=== PATIENT | female | born 1970 | race Caucasian/White ===

== ENCOUNTER 2020-11-27 08:05 | Emergency (ER) | payer BC, SELFPAY ==
[2020-11-27] VITALS (25 sets, daily range): BP systolic 121–151; BP diastolic 69–108; PULSE 68–92; RESP 14–20; TEMP 36.9; O2SAT 97–100
--- NOTE | ~2020-11-27 | CT_ITS ---
EXAMINATION: CT abdomen pelvis w con DATE: 11/27/2020 08:59 INDICATION: Upper abdominal pain. TECHNIQUE: Computed tomography (CT) of the abdomen and pelvis was performed with 100 mL Omnipaque 350 intravenous contrast. Automated exposure control and iterative reconstruction technique were employe d. The dose-length product was 1348.75 mGy-cm. COMPARISON: None. FINDINGS: The visualized portions of the lung bases demonstrate mild atelectasis in right lower lobe. No pleural effusion. The heart size is normal. No pericardial effusion. Calcifications in the liver and spleen are consistent with old granulomatous disease. The gallbladder, pancreas, adrenal glands, and left kidney are normal. There is a 5 mm cyst in right kidney. 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 There are no dilated loops of bowel. The append ix is normal. There are no pathologically enlarged lymph nodes. There is no free intraperitoneal flui d. There is mild thoracic spondylosis and severe lumbar spondylosis. IMPRESSION: 1. 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 Reviewed, dictated and finalized at location A. LAY F[employer] SUPERVISOR IMPRESSION: 1. 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
--- NOTE | 2020-11-27 08:13 | ED.ABDPAIN ---
HPI - Abdominal Pain General Chief Complaint: Abdominal Pain Stated Complaint: abd pain Time Seen by Provider: 11/27/20 08:12 History of Present Illness HPI narrative: 50 yo female presents to the ED for abdominal pain. She has had 4 episodes of epigastric pain, nausea, vomiting, and diarrhea over the past month. Each tie lasts 1-2 days. She assumed it was gastroenteritis, but seems to be getting worse. No fever, cough, congestion, sob, prior abdominal surgeries. Related Data Home Medications Medication Instructions Recorded Confirmed meloxicam PO 11/27/20 Allergies Allergy/AdvReac Type Severity Reaction Status Date / Time No Known Allergies Allergy Verified 11/27/20 08:22 Review of Systems Review of Systems: All systems reviewed & are unremarkable except as noted in HPI and below Constitutional: Constitutional: Reports fatigue, Denies fever(s) and Denies weakness Eyes: Eyes: Reports no additional eye complaints ENT: Reports dizziness Cardiovascular: Cardiovascular: Denies chest pain Respiratory: Respiratory: Denies dyspnea Gastrointestinal: Gastrointestinal: Reports abdominal pain, Reports diarrhea, Reports nausea and Reports vomiting Genitourinary: Genitourinary: Denies hematuria and Denies dysuria Musculoskeletal: Musculoskeletal: Denies back pain Neurologic: Reports dizziness and Denies weakness [facility] Past Medical History Medical History (Updated 11/28/20 @ 00:00 by Background Daemon) Healthy female adult Social History Social History Smoking status: Never smoker Alcohol intake: current Exam Const: General: healthy appearing, no acute distress and alert Orientation/consciousness: patient oriented x3 HENMT: Head: normal to inspection Neck: Neck: normal visual inspection and no lymphadenopathy Chest: Chest palpation & inspection: no tenderness Resp: Effort & Inspection: normal respiratory effort Auscultation: clear to auscultation bilaterally, no rales, no rhonchi and no wheezes Cardio: Jugular venous distension: no JVD Rate: regular rate Rhythm: regular rhythm Heart sounds: no murmurs GI: Inspection: non-distended GI Palp: Yes Soft to palpation and Yes Tenderness to palpation present (GI) (epigastric) Skin: General skin exam: normal color Neuro: General: patient oriented x3 and moves all extremities Speech: normal speech Extrem: General: no edema Psych: Appearance: well kempt Affect: normal affect Course Vital Signs Vital signs: Vital Signs Temperature 36.9 C 11/27/20 08:16 Pulse Rate 92 11/27/20 08:16 Respiratory Rate 14 11/27/20 08:16 Blood Pressure 149/108 H 11/27/20 08:16 Pulse Oximetry 100 11/27/20 08:16 Temperature 36.9 C 11/27/20 08:16 Pulse Rate 68 11/27/20 17:54 Respiratory Rate 18 11/27/20 17:54 Blood Pressure 121/82 11/27/20 17:54 Pulse Oximetry 98 11/27/20 17:54 MDM - Abdominal Pain MDM Narrative Medical decision making narrative: Labs suggest dehydration. 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 Dr. Fan contacted. He believes that it is most likely an incidental finding, but suggests vascular consult. Vascular surgery at [place] contacted and will consult if she is transfered to the ED. ED accepted transfer. Differential Diagnosis Differential diagnosis: Likely calculus of kidney, constipation, diverticulitis, gastroenteritis, pancreatitis, small bowel obstruction and other (cholecystitis) Medical Records Attestation: I reviewed the patient's medical records. Lab Data Attestation: I reviewed the patient's lab results. Result diagrams: 11/27/20 08:21 11/27/20 08:21 Labs: Lab Results 11/27/20 11/27/20 11/27/20 Range/Units 08:20 08:21 08:21 WBC 9.3 (4.5-10.0) K/mm3 RBC 5.97 H (4.2-5.4) M/mm3 Hgb 17.0 H (12.0-15.0) g/dL Hct 50.3 H (37.0-47.0) % MCV 84.3 (80-100) fl MCH 28.5 (26-34) pg MCHC 33.8 (32-36) g/dl RDW 13.1
[2020-11-27 08:29] LABS: Basophils Percent Auto 0.3 % (0.2-1.2); Eosinophils Absolute Auto 0.2 K/mm3 (0-0.3); Eosinophils Percent Auto 2.3 % (0-4.4); Hematocrit 50.3 % (37.0-47.0); Immature Granulocyte Absolute 0.03 K/mm3 (0.00-0.031); Immature Granulocyte Percent A 0.3 % (0-0.5); Lymphocytes Absolute Auto 1.85 K/mm3 (0.9-3.2); Lymphocytes Percent Auto 19.9 % (18.3-44.2); Mean Corpuscular HGB Conc 33.8 g/dl (32-36); Mean Corpuscular Hemoglobin 28.5 pg (26-34); Mean Corpuscular Volume 84.3 fl (80-100); Mean Platelet Volume 10.3 fl (7.4-10.4); Monocytes Absolute Auto 0.7 K/mm3 (0.1-0.6); Neutrophils Absolute Auto 6.5 K/mm3 (1.3-6.7); Neutrophils Percent Auto 70.2 % (45.5-73.1); Platelet Count Result 229 k/mm3 (150-375); Red Blood Count 5.97 M/mm3 (4.2-5.4); Red Cell Distribution Width 13.1 % (11.5-14.5); White Blood Count 9.3 K/mm3 (4.5-10.0)
[2020-11-27 08:35] LABS: Add Urine Microscopic? YES; Appearance Urine Clear (Clear); Bacteria Urine Trace /hpf; Bilirubin Urine Negative (Negative); Blood Urine 1+ (Negative); Color Urine Yellow (Yellow); Glucose Urine UA Negative (Negative); Ketones Urine Negative (Negative); Leukocyte Esterase Ur Trace LEU/UL (Negative); Mucus Urine Rare /lpf; Nitrate Urine Negative (Negative); Protein Urine Negative (Negative); RBC Urine 0-2 /hpf (0-2); Specific Grav Ur 1.018 (1.001-1.035); Squamous Epithelial Cell Urine Many /hpf (Few); Urobilinogen Urine Negative mg/dL (<2.0)
[2020-11-27 08:48] LABS: Alanine Aminotransferase 45 U/L (4-35); Albumin Level 4.6 g/dL (3.5-5.1); Alkaline Phosphatase 88 U/L (38-126); Anion Gap 8 mmol/L (8-16); Aspartate Amino Transferase 37 U/L (14-36); Bilirubin,Total 0.6 mg/dL (0.2-1.3); Blood Urea Nitrogen 12 mg/dL (7-17); Calcium 9.9 mg/dL (8.4-10.2); Carbon Dioxide 24 mmol/L (22-30); Chloride 109 mmol/L (98-107); Estimated CRCL calculation 97 ml/min; Estimated Glomerular Filt Rate > 60; Glucose 103 mg/dL (65-105); Lipase 138 U/L (23-300); Potassium 4.4 mmol/L (3.4-5.0); Sodium 141 mmol/L (137-145)
[2020-11-27] MEDS: SODIUM CHLORIDE 0.9% IV 1,000 ML 999 ML IV CONT (08:48)
--- NOTE | 2020-11-27 08:50 | PC.NURSE ---
Pt to CT.
[2020-11-27] MEDS: ONDANSETRON INJ 4 MG/2 ML VIAL IV PUSH (09:28)
--- NOTE | 2020-11-27 10:42 | PC.NURSE ---
Report to MINH Cruz at [facility] ED.
--- NOTE | 2020-11-27 10:54 | PC.NURSE ---
[facility] called for transport to [facility]. ETA of 1200 given.
--- NOTE | 2020-11-27 12:00 | PC.NURSE ---
Pt resting on stretcher. Awaiting [facility] for transportation to [facility].
--- NOTE | 2020-11-27 12:38 | PC.NURSE ---
[facility] pushed transfer time back to 1330. Pt ready for transfer upon arrival of EMS.
--- NOTE | 2020-11-27 14:16 | PC.NURSE ---
[facility] changing ETA for transfer to [phone].
--- NOTE | 2020-11-27 14:22 | PC.NURSE ---
Pt updated on wait time. Awaiting EMS for transport. Call light within reach.
--- NOTE | 2020-11-27 15:12 | PC.NURSE ---
callled nickolas 1048 eta 1200, nickolas called to update us 1115, eta 1300 to 1330, updated 1356 eta [id number], updated 1450, eta 1600. also called radha harvey 0916 no [facility] units for transports, called [facility] no trucks for transfers, called [facility] no trucks available at this time until after 6pm.
--- NOTE | 2020-11-27 15:26 | PC.NURSE ---
called [facility] for transport 1048, eta 1200, nickolas updated us at 1115, eta [id number], updated 1356, eta 2030-1383, updated 1450, eta 1600. also called radha 0916, no [facility] trucks for transfers, called angela no trucks for transfers, 1156, called chasity 1454, no trucks for transfers until after 6p.
--- NOTE | 2020-11-27 16:16 | PC.NURSE ---
[facility] has not pushed back transfer time to 1730.
--- NOTE | 2020-11-27 17:20 | PC.NURSE ---
Pt resting comfortably on stretcher. Daughter at bedside. Awaiting [facility] for transport to [facility].
--- NOTE | 2020-11-27 18:04 | PC.NURSE ---
[facility] updated 1t 1546, eta [id number].
--- NOTE | 2020-11-27 18:06 | PC.NURSE ---
Report given to [facility]. Pt being transferred to [facility] ED via EMS. No change in pt condition noted. Pt remains A&O x4. Vital signs and condition stable at time of transfer.
== END 2020-11-27 18:09 | disposition short-term general hospital (02) ==
PROVIDERS: Emergency Provider Emergency Medicine; PCP Physician Assistant
DX: I72.8 Aneurysm of other specified arteries (principal)
CPT/HCPCS: 36415; 74177; 80053; 81001; 81025; 83690; 85025; 96361; 96374; 99285; J2405; J7030; Q9967

== ENCOUNTER 2022-09-13 13:43 | Outpatient (CLI) | payer BC, SELFPAY | END 2022-09-13 13:44 | disposition home or self-care (01) | LOC: ANHAUDIO 13:44 | PROVIDERS: PCP Physician Assistant; Visit Provider Otolaryngology | DX: H91.92 Unspecified hearing loss, left ear (principal) | CPT/HCPCS: 92557; 92567 ==

== ENCOUNTER 2023-01-06 16:12 | Emergency (ER) | payer BC, SELFPAY ==
--- NOTE | ~2023-01-06 | CT_ITS ---
EXAMINATION: CT abdomen pelvis w con DATE: 01/06/2023 19:05 INDICATION: RUQ pain, transaminitis TECHNIQUE: Computed tomography (CT) of the abdomen and pelvis was performed with 100 mL Omnipaque-350 intravenous contrast. Automated exposure control and iterative reconstruction technique were employe d. The dose-length product was 1192.23 mGy-cm. COMPARISON: 11/27/2020. FINDINGS: Lower thorax: Unremarkable Liver: Granulomatous calcifications. Biliary/Gallbladder: No gallstones. Mild pericholecystic fluid/wall edema. No bile duct dilation. Pancreas: No mass or duct dilation. Spleen: Granulomatous calcifications. Adrenals:No mass. Kidneys: No mass, stone, or hydronephrosis. GI tract: Distal esophageal and gastric wall edema No small or large bowel dilation. Colonic submucos al fat as can be seen with chronic IBD, obesity, chemotherapy treatment, and celiac disease. Normal appendix. Diverticulosis without diverticulitis. Mesentery/Peritoneum: No ascites, mass, or free air. Retroperitoneum: No mass. 2.3 cm splenic artery aneurysm with wall calcification and possible arterio venous fistula. Pelvis: Pelvic organs are within normal limits. Soft Tissues: Soft tissues and body wall unremarkable. Bones: No acute osseous finding. IMPRESSION: Esophagitis/gastritis. Mild gallbladder wall thickening/pericholecystic fluid, recommend right upper quadrant ultrasound for further characterization. 2.3 cm splenic artery aneurysm with possible AV fis krystle, consider referral for endovascular therapy. Reviewed, dictated and finalized at location K. IMPRESSION: Esophagitis/gastritis. Mild gallbladder wall thickening/pericholecystic fluid, recommend right upper quadrant ultrasound for further characterization. 2.3 cm splenic artery aneurysm with possible AV fistula, consider referral for endovas cular therapy.
[2023-01-06 16:17] VITALS: BP 149/93; PULSE 88; RESP 20; TEMP 36.5; O2SAT 100
[2023-01-06 16:30] LABS: Basophils Percent Auto 0.4 % (0.2-1.2); Eosinophils Absolute Auto 0.1 K/mm3 (0-0.3); Eosinophils Percent Auto 0.9 % (0-4.4); Hematocrit 46.5 % (37.0-47.0); Hemoglobin 15.6 g/dL (12.0-15.0); Immature Granulocyte Absolute 0.04 K/mm3 (0.00-0.031); Immature Granulocyte Percent A 0.4 % (0-0.5); Lymphocytes Absolute Auto 1.69 K/mm3 (0.9-3.2); Lymphocytes Percent Auto 17.3 % (18.3-44.2); Mean Corpuscular HGB Conc 33.5 g/dl (32-36); Mean Corpuscular Hemoglobin 28.6 pg (26-34); Mean Corpuscular Volume 85.2 fl (80-100); Mean Platelet Volume 10.6 fl (7.4-10.4); Monocytes Absolute Auto 0.6 K/mm3 (0.1-0.6); Monocytes Percent Auto 6.5 % (2.6-8.5); Neutrophils Absolute Auto 7.3 K/mm3 (1.3-6.7); Neutrophils Percent Auto 74.5 % (45.5-73.1); Platelet Count Result 203 k/mm3 (150-375); Red Blood Count 5.46 M/mm3 (4.2-5.4); White Blood Count 9.8 K/mm3 (4.5-10.0)
[2023-01-06 16:40] LABS: Alanine Aminotransferase 178 U/L (6-35); Albumin Level 4.5 g/dL (3.5-5.1); Alkaline Phosphatase 142 U/L (38-126); Anion Gap 6 mmol/L (8-16); Aspartate Amino Transferase 144 U/L (14-36); Bilirubin,Total 1.4 mg/dL (0.2-1.3); Blood Urea Nitrogen 8 mg/dL (7-17); Calcium 9.7 mg/dL (8.4-10.2); Carbon Dioxide 27 mmol/L (22-30); Chloride 106 mmol/L (98-107); Estimated CRCL calculation 93 ml/min; Estimated Glomerular Filt Rate > 60; Glucose 106 mg/dL (65-110); Lipase 143 U/L (23-300); Sodium 139 mmol/L (137-145)
[2023-01-06 17:31] VITALS: BP 150/89; PULSE 82; RESP 16; TEMP 36.8; O2SAT 98
--- NOTE | 2023-01-06 17:48 | PC.NURSE ---
Pt states she has never had a UTI, is not concerned for UTI, and it not sexually active. Does not wish to complete a urine sample at this time.
--- NOTE | 2023-01-06 17:59 | ED.ABDPAIN ---
HPI - Abdominal Pain General Chief Complaint: Abdominal Pain Stated Complaint: ab pain Time Seen by Provider: 01/06/23 17:31 History of Present Illness HPI narrative: Patient is a 52-year-old female presenting with abdominal pain. Patient states that she went out yesterday for . States that she did eat some junk food but did not overeat. States that she had a few alcoholic beverages but did not get drunk. States that this morning she woke up and felt okay but then she ate a little something for lunch and developed severe right upper quadrant pain. States that she became concerned for a gallbladder problem or pancreas problem as she has been on Mounjaro for weight loss. Currently, the patient denies pain or nausea. Denies fevers or chills, headache, chest pain, shortness of breath, cough, dysuria, hematuria, leg swelling. Related Data Home Medications Medication Instructions Recorded Confirmed meloxicam 15 mg tablet PO 11/27/20 09/07/22 norethindrone 1 mg-ethinyl 1 tablet PO DAILY 09/07/22 09/07/22 estradiol 10 mcg (24)-iron 10 mcg(2) tablet (Lo Loestrin Fe) tirzepatide 2.5 mg/0.5 mL 2.5 mg subcut WEEKLY 09/07/22 09/07/22 subcutaneous pen injector (Mounjaro) Allergies Allergy/AdvReac Type Severity Reaction Status Date / Time No Known Allergies Allergy Verified 01/08/23 11:36 Review of Systems Review of Systems: All systems reviewed & are unremarkable except as noted in HPI and below PMFSH Past Medical History Medical History (System 01/08/23 @ 11:36 by Nubia Dick) Healthy female adult Surgical History Surgical History History of foot surgery Family History Family History Father Alcoholism Cerebrovascular accident Thyroid disorder Grandparent Cerebrovascular accident Other Diabetes mellitus Heart disease Hypertension Social History Social History (System 01/08/23 @ 11:36 by Nubia Dick) Smoking status: Never smoker Alcohol intake: current Substance use: never Living arrangements: with family 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 HEAD: Normocephalic, atraumatic. EYES: PERRLA and EOMI. ENT: Nares clear, no rhinorrhea or epistaxis. Mucous membranes moist. NECK: Supple. CHEST: Clear to auscultation. No respiratory distress. HEART: Regular rate and rhythm. ABDOMEN: Soft, mild RUQ tenderness, no guarding or rebound EXTREMITIES: Normal range of motion. No edema. SKIN: Warm, dry, no rash. NEURO: No focal deficits. Alert and oriented x3. PSYCH: Normal mood and affect. Course Vital Signs Vital signs: Vital Signs Temperature 97.7 F 01/06/23 16:17 Pulse Rate 88 01/06/23 16:17 Respiratory Rate 20 01/06/23 16:17 Blood Pressure 149/93 H 01/06/23 16:17 Pulse Oximetry 100 01/06/23 16:17 Temperature 98.2 F 01/06/23 17:31 Pulse Rate 81 01/06/23 19:26 Respiratory Rate 16 01/06/23 19:26 Blood Pressure 146/77 H 01/06/23 19:26 Pulse Oximetry 99 01/06/23 19:26 Oxygen Delivery Room Air 01/06/23 17:31 MDM - Abdominal Pain MDM Narrative Medical decision making narrative: Patient is a 52-year-old female presenting with right upper quadrant pain and nausea. Vitals within normal limits. Exam remarkable for the above. CT shows mild gallbladder wall thickening and pericholecystic fluid. There is also esophagitis and gastritis. Right upper quadrant ultrasound recommended but unfortunately it is after hours so we do not have this capability. No leukocytosis on blood work. Mild transaminitis. They are reading findings of splenic artery aneurysm, patient states that she is already aware of this and she has already been seen for this. Call out to surgery
[2023-01-06] MEDS: LACTATED RINGERS 1,000 ML 999 ML IV CONT (18:39)
[2023-01-06 18:42] VITALS: BP 152/66; PULSE 83; RESP 18; O2SAT 100
[2023-01-06 19:15] LABS: Appearance Urine Clear (Clear); Bilirubin Urine 1+ (Negative); Blood Urine Trace-lysed (Negative); Color Urine Yellow (Yellow); Glucose Urine UA Negative (Negative); Ketones Urine Negative (Negative); Leukocyte Esterase Ur Negative LEU/UL (Negative); Nitrate Urine Negative (Negative); Protein Urine Negative (Negative); pH Urine 6.5 (5.0-9.0)
[2023-01-06 19:26] VITALS: BP 146/77; PULSE 81; RESP 16; O2SAT 99
[2023-01-06 19:28] LABS: Add Urine Microscopic? YES
[2023-01-06 19:29] LABS: RBC Urine 0-2 /hpf (0-2); WBC Urine 0-3 /hpf (0-3)
[2023-01-06 19:30] LABS: Bacteria Urine 1+ /hpf; Squamous Epithelial Cell Urine Rare /hpf (Few)
== END 2023-01-06 21:33 | disposition home or self-care (01) ==
PROVIDERS: Emergency Medicine; Emergency Provider Emergency Medicine; PCP Physician Assistant
DX: R10.11 Right upper quadrant pain (principal); R74.01 Elevation of levels of liver transaminase levels
CPT/HCPCS: 36415; 74177; 80053; 81001; 81025; 83690; 85025; 96360; 99284; J7120; Q9967

== ENCOUNTER 2023-01-17 07:42 | Outpatient (CLI) | payer BC, SELFPAY ==
--- NOTE | ~2023-01-17 | US_ITS ---
Limited Abdominal Sonogram: Real-time sonographic imaging of the right upper quadrant was performed. Clinical History: Chronic cholecystitis Findings: The liver appears normal with no evidence of mass lesion or bile duct dilatation. Main por alexus vein demonstrates normal direction of flow. The gallbladder is probably collapsed, with echogenic shadowing stones present. No definite gallbladder wall thickening. The common bile duct measures 5 m m. The visualized pancreas, aorta, and IVC are unremarkable. Impression: Cholelithiasis. Reviewed, dictated and finalized at location M. Impression: Cholelithiasis.
== END 2023-01-17 07:43 | disposition home or self-care (01) ==
LOC: ANHIMG 07:44
PROVIDERS: PCP Physician Assistant; Visit Provider Surgery
DX: R79.89 Other specified abnormal findings of blood chemistry (principal); K80.20 Calculus of gallbladder without cholecystitis without obstruction
CPT/HCPCS: 76705

== ENCOUNTER 2023-01-26 12:22 | Outpatient (CLI) | payer BC, SELFPAY ==
--- NOTE | 2023-01-26 12:34 | ECG_ITS ---
Measurements Intervals [place] Rate: 77 P: 12 [place]: 157 QRS: 1 QRSD: 89 T: 10 QT: 407 QTc: 463 Interpretive Statements SINUS RHYTHM BASELINE ARTIFACT POOR R-WAVE PROGRESSION PRECORDIAL LEADS MODERATE VOLTAGE CRITERIA FOR LVH, CONSIDER NORMAL VARIANT BORDERLINE ECG NO PREVIOUS ECG AVAILABLE FOR COMPARISON Electronically Signed On 01-27-2023 14:57:50 CDT by Ozzie Escobar M.D.
[2023-01-26 13:02] LABS: Alanine Aminotransferase 120 U/L (6-35); Albumin Level 4.4 g/dL (3.5-5.1); Alkaline Phosphatase 94 U/L (38-126); Amylase 58 U/L (30-110); Aspartate Amino Transferase 81 U/L (14-36); Bilirubin,Total 0.7 mg/dL (0.2-1.3); Lipase 129 U/L (23-300)
== END 2023-01-26 12:23 | disposition home or self-care (01) ==
LOC: ANHSURGERY 12:26
PROVIDERS: PCP Physician Assistant; Visit Provider Surgery
DX: K81.1 Chronic cholecystitis (principal); R79.89 Other specified abnormal findings of blood chemistry; Z01.818 Encounter for other preprocedural examination; R94.31 Abnormal electrocardiogram [ECG] [EKG]
CPT/HCPCS: 36415; 80076; 82150; 83690; 86850; 86900; 86901; 93005

== ENCOUNTER 2023-01-31 02:02 | Day surgery (SDC) | payer BC, SELFPAY ==
[2023-01-24 12:08] VITALS: BMI 36.3
--- NOTE | 2023-01-24 12:13 | PC.NURSE ---
Report to the Outpatient Waiting Room, entrance under the green pavilion located off [facility], at time 8:30 on date 01/31/23. Planned Procedure Time: 10:30. Time changes happen often and if your time is changed the preop area will call you the afternoon before. - You and your visitor will be asked to self-screen and do not enter if you have any COVID symptoms. - Only one visitor is requested with a max of two and NO children visitors are allowed at this time. - The patient visitor may be requested to leave or wait in car when not with patient due to distancing restrictions. - A mask is optional within the hospital at this time. Patients may have clear liquids (water, carbonated beverages, clear teas, apple juice) until 3 hours prior to surgery (7:30) with a maximum of 20 ounces. - No food from midnight until time of surgery Take the following medications with a SIP of water the morning of surgery: NONE DO NOT STOP ANY OF YOUR OTHER PRESCRIPTION MEDICATIONS PRIOR TO SURGERY?EXCEPT THE FOLLOWING Medications to discontinue per physician: MELOXICAM Date to take last dose: PER DR. DEMARCO Please no make-up, nail german, hairspray, perfume, deodorant, or body powder the day of surgery. No jewelry (including any body piercings) or valuables the day of surgery, leave them at home. Please take a shower or bath the night before, or the morning of, surgery with an antibacterial soap (HIBICLENS). Wear comfortable, loose fitting clothing. - Jewelry must be removed prior to entering the operating room. Rings and piercings that are not removed may be cut off. - The hospital will not accept responsibility for valuables. - Please leave all valuables, including medications, at home the day of surgery. If you are going home after surgery, a licensed armor reconnaissance vehicle driver must drive you home. - NO public transportation without another adult if you receive anesthesia. - We recommend that an adult stay with you for 24 hours following discharge. - We also recommend that you do not drive, make important decision, drink alcoholic beverages, or take any drugs that were not prescribed by your health care provider for at least 24 hours after your discharge time. Follow any additional instructions given to you from your surgeon. If you or anyone in your household have experienced Covid symptoms in the past week, please notify your surgeon or the nurse liaison at the phone number below for possible testing. Telephone instructions given to PT - HARLEY MALONE and asked if any additional questions and then verbalized understanding. Patient advised to call surgeon office or pre surgery nurse liaison [phone] if any additional questions.
[2023-01-31] VITALS (10 sets, daily range): BP systolic 112–141; BP diastolic 64–87; PULSE 83–98; RESP 14–20; TEMP 36.3; O2SAT 96–100; BMI 35.9
--- NOTE | ~2023-01-31 | XR_ITS ---
EXAMINATION: 01/31/2023 09:50 DATE: 01/31/2023 10:00 CDT INDICATION: Cholecystectomy, intraoperative cholangiogram TECHNIQUE: Intraoperative cholangiogram with a single contrast run(s) provided for review. FINDINGS: There is cannulation and contrast administration into the cystic duct remnant. There is no discrete filling defect in the common bile duct to suggest common bile duct stone. Contrast flows fr eely into the duodenum. IMPRESSION: 1. Patent cystic duct remnant and common bile duct, without common bile duct stone. Reviewed, dictated and finalized at location B. IMPRESSION: 1. Patent cystic duct remnant and common bile duct, without common bile duct s tone.
--- NOTE | 2023-01-31 07:12 | P.PNAN_ITS ---
Anes - Initial Pre Proc Eval Procedure: Operation Date: 01/31/23 09:00 Proposed Procedures p Laparoscopic Cholecystectomy, with Intraoperative Cholangiogram - Arpit Mckenzie MD Date/Time: 01/31/23 07:12 Surgeon: Arpit Mckenzie MD Pre Op Diagnosis: chronic cholecystitis, abnormal Lft'S Patient Data Age: 52 Gender: F Height: 1.65 m Weight: 98.9 kg Allergies Allergy/AdvReac Type Severity Reaction Status Date / Time oxycodone [From Percocet] AdvReac Intermediate Dyspnea / Verified 01/31/23 07:08 SOB tramadol AdvReac Intermediate Dyspnea / Verified 01/31/23 07:08 SOB Home Medications Medication Instructions Recorded Confirmed Type meloxicam 15 mg tablet 15 mg PO DAILY 11/27/20 01/24/23 History norethindrone 1 mg-ethinyl 1 tablet PO HS 09/07/22 01/24/23 History estradiol 10 mcg (24)-iron 10 mcg(2) tablet (Lo Loestrin Fe) tirzepatide 10 mg/0.5 mL 10 mg subcut WEEKLY 01/24/23 01/24/23 History subcutaneous pen injector (Mounjaro) Patient hx anesthesia problems: none Family hx anesthesia problems: none Results Review: All pre-operative results and documents have been reviewed as part of the pre- operative evaluation. [facility] Past Medical History Medical History (Updated 01/31/23 @ 07:12 by Felipe Escalona DO) BPPV (benign paroxysmal positional vertigo) TMJ (temporomandibular joint disorder) Surgical History Surgical History History of foot surgery Family History Family History Father Alcoholism Cerebrovascular accident Thyroid disorder Grandparent Cerebrovascular accident Other Diabetes mellitus Heart disease Hypertension Social History Social History Smoking packs per day: 0.5 Smoking cigarettes per day: 10.0 Years smoked: 10 Smoking pack-years: 5.00 Smoking status: Former smoker Tobacco type: cigarettes Smoking end date: 10/22/02 Alcohol intake: former Alcohol use details: NOT RECENTLY Substance use: never Substance use type: does not use Living arrangements: with family Occupation/Education: occupation 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 Informed Consent: The patient's anesthetic plan and its attendant risks and benefits were discussed with the patient/family/POA. Questions were solicited and answers provided to the satisfaction of the patient/family/POA.
[2023-01-31] MEDS: LACTATED RINGERS 1,000 ML 30 ML IV CONT (07:28)
[2023-01-31] MEDS: ACETAMINOPHEN 500 MG TABLET 1000 MG PO (07:36)
[2023-01-31] MEDS: KETOROLAC 15 MG/ML VIAL (*BKC) IV PUSH (07:37)
--- NOTE | 2023-01-31 08:39 | WPDHPUPDATE1 ---
History and Physical Update Update Date/Time: 01/31/23 08:39 History and Physical has been reviewed, including an updated exam of the patient. There are NO changes in the patient's condition. Risks, benefits, and alternatives have been discussed and questions answered. Patient agrees to proceed with procedure.
[2023-01-31] MEDS: ceFAZolin 2 GM/D5W 50 ML 2 GM/50 ML BAG IVPB (08:58)
[2023-01-31] MEDS: BUPIVACAINE/EPINEPHRINE 0.5% 50 ML VIAL 30 ML INFILTRATE (09:35)
--- NOTE | 2023-01-31 10:18 | P.OP_ITS ---
Procedure Note - Detailed Date of Procedure 01/31/23 Pre-op Diagnosis chronic cholecystitis, abnormal Lft'S Post-op Diagnosis Same Procedure Performed Laparoscopic cholecystectomy with intraoperative cholangiogram Surgeon Arpit Mckenzie MD Recreation Program Coordinator [facility] Anesthesia General and Local (0.5% Marcaine with epinephrine) Indications Patient has had episodes of postprandial right upper quadrant abdominal pain that were severe. Her ultrasound showed gallstones. She has also been noted to have some abnormal liver function tests. She is taken to surgery now for laparoscopic cholecystectomy with intraoperative cholangiogram Findings Patient had some moderate chronic gallbladder inflammation. There was no biliary ductal dilatation. There were no liver abnormalities. Intraoperative cholangiogram was negative. There was prompt duodenal filling and no biliary ductal dilatation or filling defects noted. Description of Procedure The patient was taken to surgery and induced into general anesthesia. The abdomen is prepped and draped. Trocars were placed in the usual fashion using Clinical Insight optical trocars and a 5 mm camera. The gallbladder was retracted anterosuperiorly. Dissection was carried out in the cholecystohepatic triangle. The cystic duct and cystic artery were dissected out very clearly. The gallbladder was dissected off the liver at its lower 3rd. Critical view was achieved. I then securely clipped and divided the cystic artery. I placed a clip on the distal gallbladder proximal cystic duct. I then made a small opening in the cystic duct and passed the cholangiogram catheter into the cystic duct. C-arm fluoroscopy was brought into the field and focused on the area of the gallbladder and biliary tree. Cine fluoroscopy cholangiogram was then performed. This was negative as noted above. The radiologist was on speaker phone and confirmed his impression was a normal cholangiogram as well. Cholangiogram catheter was removed. The cystic duct was securely clipped and divided. We then dissected the gallbladder free of its remaining peritoneal attachments to the liver. Cautery was used for hemostasis on the gallbladder f roberto. The gallbladder was then placed in an Endo-Catch bag retrieved through the 10 11 epigastric trocar site. We replaced the epigastric trocar and then reviewed the right upper quadrant and gallbladder fossa. Some additional cautery on the gallbladder fossa was performed. All looked quite good at this point. We evacuated CO2 and removed the trocar sleeves. Skin wounds were closed with subcuticular 4-0 Monocryl skin suture. The wounds were dressed with Exofin surgical adhesive. Patient was awakened and taken to recovery in good condition. Sponge needle counts were correct x2. Estimated Blood Loss -5.0 Drains No Packing No Pathology Yes (Gallbladder) Complications No immediate complications Condition Stable Disposition PACU [facility] Billing Surgery - Charge Forward: Surgery Billing (Laparoscopic cholecystectomy with intraoperative cholangiogram)
== END 2023-01-31 12:17 | disposition home or self-care (01) ==
PROVIDERS: PCP Physician Assistant; Visit Provider Surgery
PROC: 0FT44ZZ Resection of Gallbladder, Percutaneous Endoscopic Approach (ICD-10-PCS; CPT 47562; principal; 2023-01-31 09:00)
DX: K80.10 Calculus of gallbladder with chronic cholecystitis without obstruction (principal); R79.89 Other specified abnormal findings of blood chemistry; Z87.891 Personal history of nicotine dependence; E66.9 Obesity, unspecified; Z68.36 Body mass index [BMI] 36.0-36.9, adult
CPT/HCPCS: 47563; 74300; 88304; A9270; C1713; J0690; J1100; J1170; J1885; J2250; J2405; J2704; J2710; J3010; J7120; Q9966

== ENCOUNTER 2023-08-13 14:23 | Outpatient (CLI) | payer BC, SELFPAY ==
--- NOTE | ~2023-08-13 | MR_ITS ---
EXAMINATION: MR brain IAC wo/w con DATE: 08/13/2023 15:53 INDICATION: Peripheral vertigo. Tinnitus. Hearing loss. TECHNIQUE: Magnetic resonance imaging (MRI) of the brain, brainstem, and internal auditory canals was performed without and with 20 mL MultiHance intravenous contrast. COMPARISON: None. FINDINGS: There is 11 x 11 x 10 mm enhancing extra-axial mass overlying medial posterior left frontal lobe, consistent with a meningioma. There is no acute ischemic infarct or intracranial hemorrhage. T he ventricles are normal in size. The internal auditory canals and inner ears and tympanic cavities a re normal. There is a small right mastoid effusion. The orbits are normal. The paranasal sinuses are clear. IMPRESSION: 1. 11 mm meningioma overlying medial posterior left frontal lobe. Reviewed, dictated and finalized at location E.
== END 2023-08-13 14:24 | disposition home or self-care (01) ==
PROVIDERS: PCP Physician Assistant
DX: H81.399 Other peripheral vertigo, unspecified ear (principal)
CPT/HCPCS: 70553; A9577

== ENCOUNTER 2024-02-13 12:34 | Outpatient (CLI) | payer BC, SELFPAY ==
--- NOTE | ~2024-02-13 | MR_ITS ---
EXAMINATION: MR brain/brain stem wo/w con DATE: 02/13/2024 13:48 INDICATION: Cerebral meningioma. Bilateral hearing loss. Migraine headache with vertigo. TECHNIQUE: Magnetic resonance imaging (MRI) of the brain and brainstem was performed without and with 20 mL MultiHance intravenous contrast. COMPARISON: Brain MRI 08/13/2023 FINDINGS: There is an 11 x 11 x 10 mm enhancing extra-axial mass overlying medial posterior left fron alexus lobe, consistent with a meningioma. There is no acute ischemic infarct or intracranial hemorrhage . The ventricles are normal in size. The orbits are normal. The paranasal sinuses are clear. There is a trace right mastoid effusion. IMPRESSION: 1. Stable 11 mm meningioma overlying medial posterior left frontal lobe. Reviewed, dictated and finalized at location E.
== END 2024-02-13 12:35 | disposition home or self-care (01) ==
PROVIDERS: PCP Physician Assistant
DX: D32.0 Benign neoplasm of cerebral meninges (principal)
CPT/HCPCS: 70553; A9577

== ENCOUNTER 2024-09-30 10:55 | Outpatient (CLI) | payer BC, SELFPAY ==
--- NOTE | ~2024-09-30 | XR_ITS ---
Clinical Indication: Bronchitis PA and lateral views of the chest: Comparison: None Findings: The lungs are clear, without evidence of focal consolidation or pleural effusion. Cardiome diastinal silhouette is within normal limits. Bones and soft tissues are unremarkable. Impression: Normal chest. Reviewed, dictated and finalized at location . OMER SUCCESS REPRESENTATIVE Impression: Normal chest.
== END 2024-09-30 10:56 | disposition home or self-care (01) ==
LOC: MICIMG 10:55
PROVIDERS: PCP Physician Assistant; Visit Provider Physician Assistant
DX: J40 Bronchitis, not specified as acute or chronic (principal)
CPT/HCPCS: 71046

== ENCOUNTER 2025-01-26 12:18 | Outpatient (CLI) | payer BC, SELFPAY ==
--- NOTE | ~2025-01-26 | XR_ITS ---
XR chest 2V 01/26/2025 12:37 Indication: Wheezing Procedure: 2 view chest Comparison: 09/30/2024 Findings: Heart size normal. Left lung clear. Right lower lobe airspace disease, compatible with pneu monia. There are cholecystectomy clips. No pleural effusion, edema or pneumothorax. Impression: 1: Right lower lobe pneumonia. Reviewed, dictated and finalized at location A. Impression: 1: Right lower lobe pneumonia.
--- OUTSIDE RECORDS SUMMARY | 2025-01-26 14:00 | XMS_ITS | Clinical Summary ---
Author Organization [facility] Address [address] [place] [address] Care Team Providers Care Beach Attendant Name Role Phone Unknown, Notinfile Primary Care Provider Unavail able Allergies No known active allergies Medications norethindrone-e.es tradioL-iron (Lo Loestrin Fe) 1 mg-10 mcg (24)/10 mcg (2) tablet Lo Loestrin Fe 1 mg-10 mcg (24)/10 mcg (2) tablet TAKE 1 TABLET BY MOUTH EVERY DAY Active meloxicam (MOBIC) 15 mg tablet TAKE 1 TABLET BY MOUTH EVERY DAY WITH A MEAL NEEDED 1 Active ondansetron (ZOFRAN) 8 mg tablet Take 1 tablet (8 mg total) by mouth every 8 (eight) hours as needed for nausea or vomiting 20 tablet 1 Active verapamil ER (VERELAN) 120 mg 24 hr capsule Take 1 capsule (120 mg total) by mouth daily Active predniSONE (DELTASONE) 20 mg tablet TK 2 TS PO D FOR 5 DAYS Active ondansetron ODT (ZOFRAN-ODT) [address] 1 TABLET ON TOP OF THE TONGUE AND ALLOW TO DISSOLVE EVERY 6 HOURS NEEDED 3 Active Nystop powder APPLY TOPICALLY TO THE AFFECTED AREA TWICE DAILY Active fluticasone propionate (FLONASE) 50 mcg/actuation nasal spray Administer into each nostril daily Active dexAMETHasone (DECADRON) 1 mg tablet take tablet at 10 pm night before 8 am cortisol level Active triamterene-hydroC HLOROthiazide 37.5-25 mg per capsule Take 1 tablet/capsule by mouth daily 90 tablet/capsu le 3 3 Active predniSONE (DELTASONE) 10 mg tablet Take 6 pills the 1st dy, 5 pills the 2nd dy, 4 pills the 3rd dy, taper by 1 each dy until gone 21 tablet 3 Active Active Problems Problem Noted Date Diagnosed Date Plantar fasciitis 04/15/2010 Family History Medical History Relation Name Comments Diabetes Other Family history of diabetes mellitus - (Added by TW Conv) Heart disease Other Family history of cardiac disorder - (Added by TW Conv) Hypertension Other Family history of hypertension - (Added by TW Conv) Stroke Other Family history of cerebrovascular accident - (Added by TW Conv) Relation Name Status Comments Other Social History Tobacco Use Types Packs/Day Years Used Date Smoking Tobacco: Former Personal Safety Answer Date Recorded Getting School Help Needed Not on file 11/20 Comments No Sex and Gender Information Value Date Recorded Sex Assigned at Not on file Legal Sex Female 5:06 AM PLANT PRODUCTION MANAGER Gender Identity Not on file Sexual Orientation Not on file Obstetrics History Last Filed Vital Signs Vital Sign Reading Time Taken Comments Blood Pressure 123/79 11/27/2020 9:30 PM PLANT PRODUCTION MANAGER Pulse 76 11/27/2020 9:30 PM PLANT PRODUCTION MANAGER Temperature 37 C (98.6 F) 11/27/2020 6:45 PM PLANT PRODUCTION MANAGER Respiratory Rate 17 11/27/2020 9:30 PM PLANT PRODUCTION MANAGER Oxygen Saturation 96% 11/27/2020 9:30 PM PLANT PRODUCTION MANAGER Inhaled Oxygen Concentration - - Weight 104.3 kg (230 lb) 11/27/2020 6:45 PM PLANT PRODUCTION MANAGER Height 165.1 cm (5' 5 ) 11/27/2020 6:45 PM PLANT PRODUCTION MANAGER Body Mass Index 38.27 11/27/2020 6:45 PM PLANT PRODUCTION MANAGER Plan of Treatment Health Maintenance Due Date Last Done Comments Breast Cancer Screening-Mammogram 1968 Cervical Cancer Screening 1968 Colon Cancer Screening-Colonoscopy 1968 Depression Screening 1968 Hepatitis C Screening 1968 DTaP/Tdap/Td Vaccine (1 - Tdap) 1979 Hepatitis B Screening 1986 Regular Well Visit/Exam 18-64 1986 Zoster Vaccine (1 of 2) 2018 Influenza Vaccine (#1) 2024 08/12/2019 Pneumococcal vaccine <65 Aged Out No longer eligible based on patient's age to complete this topic Insurance [place] [employer] [place] Care Teams Beach Attendant Relationship Specialty Start Date End Date Unknown, Notinfile PCP - General 11/27/20
--- OUTSIDE RECORDS SUMMARY | 2025-01-26 14:00 | XMS_ITS | Referral Summary ---
Author Organization [facility] Address [address] [place] [address] Care Team Providers Care Education Liaison Name Role Phone Unknown, Notinfile Primary Care [...] Noted Date Diagnosed Date Plantar fasciitis 04/15/2010 Social History Tobacco Use Types Packs/Day Years Used Date Smoking Tobacco: Former Personal Safety Answer Date Recorded Getting School Help Needed Not on file 11/20 Comments No Sex and Gender Information Value Date Recorded Sex Assigned at Not on file Legal Sex Female 5:06 AM GEOLOGICAL SPECIALIST Gender Identity Not on file Sexual Orientation Not on file Last Filed Vital Signs Vital Sign Reading Time Taken Comments Blood Pressure 123/79 11/27/2020 9:30 PM GEOLOGICAL SPECIALIST Pulse 76 11/27/2020 9:30 PM GEOLOGICAL SPECIALIST Temperature 37 C (98.6 F) 11/27/2020 6:45 PM GEOLOGICAL SPECIALIST Respiratory Rate 17 11/27/2020 9:30 PM GEOLOGICAL SPECIALIST Oxygen Saturation 96% 11/27/2020 9:30 PM GEOLOGICAL SPECIALIST Inhaled Oxygen Concentration - - Weight 104.3 kg (230 lb) 11/27/2020 6:45 PM GEOLOGICAL SPECIALIST Height 165.1 cm (5' 5 ) 11/27/2020 6:45 PM GEOLOGICAL SPECIALIST Body Mass Index 38.27 11/27/2020 6:45 PM GEOLOGICAL SPECIALIST Plan of Treatment Not on file Insurance [facility] Care Teams Education Liaison Relationship Specialty Start Date End Date Unknown, Notinfile PCP - General 11/27/20
--- OUTSIDE RECORDS SUMMARY | 2025-01-26 14:01 | XMS_ITS | Data Portability ---
Author Organization [facility] Navigating Cancer 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 VCSS score is 12. I am concerned that the symptoms may progress over time. Patients symptoms persist despite a trial of properly fitted gradient compression stockings for2 years. Given the symptoms, I recommend lower extremity venous ultrasound. . I will discuss further treatment plans upon reviewing her ultrasound results. [email or web address] Not available 06/30/2022 12:05:32 07/10/2022 07/10/2022 51 y/o female wi th chronic venous insufficiency for follow up regarding her lower extremity venous ultrasound results. Her lower extremity venous ultrasound results revealed previous vein stripping of her bilateral GSV's. She has significant reflux of her bilateral saphenofemoral junctional reflux and right AAGSV. 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 Patients symptoms persist despite a trial of properly fitted gradient compression stockings for2 years. Patient has also tried mild exercise, avoidance of prolonged immobility and periodic elevation of legs for2 years. However, the symptoms still persist. Given the symptoms, I recommend venous closure . The risks, benefits and alternatives were discussed with the patient. The patient states that they understand and wish to proceed. Treatment planning is underway. I spent a total of 45 minutes with the patient. The time was spent reviewing the chart discussing with patient and/or family and forming a treatment plan Treatment plan Right leg: Varithena of GSV varicosities-07444 Varithena of SSV varicosities-81168 AASV closure-[id number] Left leg: Varithena of GSV varicosities-19231 Varithena of SSV varicosities-59856 [email or web address] Not available 07/11/2022 17:37:20 Plan of Treatment Reminders Order Date Submit Date Provider Last Modified By Organization Details Last Modified Time Details Appointments None record ed. Lab None record ed. Referral None record ed. Procedures None record ed. Surgeries None record ed. Imaging None record ed. Medication Orders None record ed. Patient TargetsNo targets recorded. Patient InstructionsNo instructions recorded. Reason for Referral None Reported. Results Created Date Observation Date Name Description Value Unit Range Abnormal Flag Note LastModifiedBy Organization Detail LastModifiedTime 07/11/20 22 US, doppl er, venou s No observ ation record ed. [email or web address] Not Available 2021 13:39:57 Result Notes None recorded. Problems No Known Problems Procedures Surgical History Date Name Laterality Status Provider Name and Address Organization Details Recorded Time 07/07/20 22 OALEVenousUSreflux completed SANTANA QIU [facility] and 07/07/2022 13:40:51 Imaging Results Imaging Date Name Status LastModified by Organiz ation Details LastModified Time 07/11/2022 US, doppler, venous completed [email or web address] Information not available 07/11/2022 13:39:57 Procedure Notes None recorded. Medical Equipment None Reported. Allergies No known drug allergies Medications Name Sig Start Date Stop Date Status Note LastModified by Organization Details LastModified Time meloxicam 15 mg tablet Take 1 tablet every day by oral route. active Not Available Not Available No t Available Lo Loestrin Fe 1 mg-10 mcg (24)/10 mcg (2) tablet Take 1 tablet every day by oral route. active Not Available Not Available No t Available Vitals Date Recorded Body height Body mass index (BMI) Body weight Provider Name and Address Organization Details Last Updated DateTime 06/30/2022 165.1 cm 43.3 kg/m2 281392.02 [email or web address] hand [facility] and 06/30/2022 11:44:11 Date Recorded Body height Provider Name an d Address Organization Details Last Updated DateTime 07/07/2022 165.1 cm Carol REYNOLDS [employer] [facility] 07/12/2022 06:59:54 Social History Question Answer Notes LastModified by Organizat ion Details LastModified Time Tobacco Smoking Status Former Smoker adolfo [place], [place] - [facility] 06/30/2022 11:46:28 What Is Your Level Of Alcohol Consumption? Occasional Information not available 06/30/2022 What Was The Date Of Your Most Recent Tobacco Screening? 06/30/2022 [email or web address] Information not available 06/30/2022 Do You Use Any Illicit Or Recreational Drugs? No [email or web address] Information not available 06/30/2022 How Many Years Have You Smoked Tobacco? 10 [email or web address] Information not available 06/30/2022 Sex: Unknown Functional Status None recorded. Mental Status None recorded. Family History Relationship Description Onset Age of this Age Resolved Age Notes LastModified by Organization Details LastModified Time Father Diabetes mellitus [email or web address] Not available 06/30 11:45:34 Father Heart disease [email or web address] Not available 06/30 11:45:42 Mother Diabetes mellitus [email or web address] Not available 06/30 11:45:35 Medical History Condition Response Diabetes N Anxiety Disorder N Anticoagulation therapy N Varicose Veins Y Coronary Artery Disease N Bleeding Disorder N Hyperlipidemia N Cancer N Stroke N Asthma N COPD N Pacemaker N Clotting Disorder N Anemia N Neurologic Disorder N Hepatitis N Genitourinary Disease N Heart Disease N Ulcers N Gastrointestinal Disease N Pulmonary Embolism N Deep Vein Thrombosis N Hypertension N Kidney Disease N Gynecological HistoryNo gynecological history recorded. Obstetrics History GPAL:G 0 P 0 0 0 0 Past Encounters Encounter ID Performer Location Encounter Start Date Encounter Closed Date Diagnosis/Indication Diagnosis SNOMED-CT Code Diagnosis ICD10 Code Diagnosis Note [id number] Susanne Hines MD [facility] ( [place] ) [address] [address] 06/30/2022 11:32:22 06/30/2022 12:32:01 Varicose veins of lower extremity 55030153 I83.893 Primary ve nous insufficiency of leg 675442531 I87.2 [id number] Carol TROTTEROUN Albina [place] [address] [place] [address] 07/07/2022 13:30:10 07/12/2022 10:01:45 Varicose veins of lower extremity 52324298 I83.893 [id number] Dana CASTILL[facility] [address] [facility], [address] ( [facility] ) [place] [address] 07/11/2022 17:37:53 07/12/2022 12:26:02 Varicose veins of lower extremity 97982182 I83.893 Primary ve nous insufficiency of leg 378613620 I87.2 Edema of l ower extremity 869331849 R60.0 Health Concerns Section Related Observation LastModified by Organization Detai ls LastModified Time None Recorded Concern Status LastModified by Organization Details LastModified Time None Recorded Advance Directives Directive None Recorded Payers Encounter Date Sequence Insurance Name Policy Number Policy Glez Covered Member ID Glez Member ID Guarantor Name 06/30/2022 1 [place] [id number] Karla Hedger [id number] Karla Hedger 07/07/2022 1 [place] [id number] Karla Hedger [id number] Karla Hedger 07/10/2022 1 [place] [id number] Karla Hedger [id number] Karla Hedger Notes Date Note Type Note Provider Name and Address Organization Details Recorded Time 2 text/html Varicose Vein or Venous insufficiencyReported bypatient.Location:[facility] Quality:aching;burning;thr obbing; worse during the day; legs swell equally Associated Symptoms:swelling;itching; heaviness;throbbing;discol oration;character: cramping Severity:moderate;worst pain 7/10 Context:compression stockings (for how long?) 2 years Alleviating Factors:elevation; rest Aggravating Factors:prolonged standing functional statusworkin - mildly limited; 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 As related to {{his her*}} venous disease, patient reports {{burning aching swelling itching cramping burning, aching, swelling, itching and cramping,#}} {{and burning and aching and swelling and itching and cramping}} {{during activity after prolonged standing during activity and prolonged standing*}}.Patient {{endorses* denies}} prior use of compression stockings.{{Patients symptoms persist despite a trial of properly fitted gradient compression stockings*}}for {{1 2* 3 4 5 6 7 8 9 10 11 12}} {{months weeks years* kay h week year}} {{Patient has also tried mild exercise, avoidance of prolonged immobility and periodic elevation of legs*}} for{{1 2* 3 4 5 6 7 8 9 10 11}} {{month months week weeks year years* month months w [place] weeks year years*}}. {{However, the symptoms still persist.*}} {{Analgesic medication has been tried, but the symptoms persist and are lifestyle limiting*}}Patients work requires {{prolonged standing prolonged sitting constant activity*}} which has to be modified because of persistent {{pain swelling discomfort swelling and discomfort#}} while {{standing sitting in motion performing various work activities*}} [place] [address], [address], [facility] and 06/30/2022 12:11:47 2 text/html 51 year old female presents for follow up regarding her lower extremity venous ultrasound results. No changes from prior HPI. Dana dunbar, [facility] and 07/11/2022 17:39:24 OBGyn Episode No OBEpisode recorded.
--- OUTSIDE RECORDS SUMMARY | 2025-01-26 14:01 | XMS_ITS | Clinical Summary ---
Author Organization [facility] Address [facility] [place] [address] Care Team Providers Care Loading Machine Operator Helper Name Role Phone Unknown, Provider Primary Care Provider Unavaila ble Source Comments [facility],non-owned Affiliates and Associated Physician Practices is amultiple site organization consisting of ambulatory clinics and hospital sitesin [place], [place], [place] and [place]. This disclosure is being madepursuant to the Care Everywhere program and may not contain all information available regarding this patient. Last updated 18.[facility] Allergies No known active allergies Medications * Be aware that medications may not be up to date on this document. Alwaysverify current medications with the patient. Medication Sig Dispensed Refills Start Date End Date Status fluticasone propionate (Flonase) 50 MCG/ACT nasal spray Coleman 2 (two) sprays into each nostril as needed Active meloxicam (Mobic) 15 MG tablet Take 1 (one) tablet by mouth once daily as needed 12/11/2023 Active nystatin (Nystop) 789435 UNIT/GM powder Apply to affected area as needed Active Betahistine HCl 12mg capsule 1 capsule daily x7 days then 1 capsule BID x7 days then 1 capsule TID as maintenance dose. 5 g 02/18/2024 Active Additional Information Patient taking differently: 1 tablet Oral DIRECTED, 12mg capsule 1 capsule daily x7 days then 1 capsule BID x7 days then 1 capsule TID as maintenance dose., Reported on 06/02/2024 Lo Loestrin Fe 1 MG-10 MCG / 10 MCG tablet Take 1 (one) tablet by mouth once daily 03/12/2024 Active predniSONE (Deltasone) 10 MG tablet Take 6 tabs for 4 days, 4 for 4 days, 3 for 4 days, 2 for 4 days and 1 for 4 days 64 tablet 05/19/2024 Active nortriptyline (Pamelor) 10 MG capsule Take 10 mg nightly for a week. 20 mg nightly for a week. 30 mg nightly. 90 capsule 06/05/2024 Active diazePAM (Valium) 2 MG tablet Take 1 (one) tablet by mouth once daily as needed (imbalance) 30 tablet 06/05/2024 Active Active Problems No known active problems Immunizations Name Administration Dates Next Due Covid Moderna primary monovalent 12+ yr 0.5mL ,11/23/2020 INFLUENZA VACCINE, QUADR. (F LUZONE; FLULAVAL; FLUARIX; AFLURIA QUADRIVALENT; 6MO+), 0.5 ML (IIV4) 08/12/2019 Social History Tobacco Use Types Packs/Day Years Used Date Smoking Tobacco: Never Smokeless Tobacco: Never Tobacco Cessation:Counseling Given: Not Answered Alcohol Use Standard Drinks/Week Comments Yes 0 (1 standard drink = 0.6 oz pur e alcohol) occ Sex and Gender Information Value Date Recorded Sex Assigned at Not on file Gender Identity Not on file Sexual Orientation Not on file Last Filed Vital Signs Vital Sign Reading Time Taken Comments Blood Pressure 139/92 06/20/2024 1:19 PM CDT Pulse 99 06/20/2024 1:19 PM CDT Temperature - - Respiratory Rate - - Oxygen Saturation - - Inhaled Oxygen Concentration - - Weight 114.8 kg (253 lb) 06/20/2024 1:19 PM CDT Height 165.1 cm (5' 5 ) 06/20/2024 1:19 PM CDT Body Mass Index 42.1 06/20/2024 1:19 PM CDT Plan of Treatment Health Maintenance Due Date Last Done Comments COLOGUARD (AGES 45-75) - COL ON CA SCREENING 1968 COLON MONITORING 1968 COLONOSCOPY - COLON CA SCREENING 1968 CT COLONOGRAPHY - COLON CA SCREENING 1968 Colorectal Cancer Screening 1968 FIT - COLON CA SCREENING 1968 FLEX SIG - COLON CA SCREENING 1968 LIPID TESTING 1968 PAP SMEAR 1968 HIV SCREENING 1983 HEPATITIS C SCREENING 09/10/1986 DTAP/TDAP/TD VACCINES (1 - Tdap) 1987 HEPATITIS B VACCINE (1 of 3 - 19+ 3-dose series) 1987 PNEUMOCOCCAL VACCINE 50+ (1 of 1 - PCV) 2018 ZOSTER VACCINE (1 of 2) 2018 MAMMOGRAM 11/27/2022 11/27/2020 SCREENING FOR DIABETES 12/21/2023 COVID-19 VACCINE (3 - 2023-2 5 season) 2024 12/21/2020, 11/23/2020 INFLUENZA VACCINE (#1) 2024 08/12/2019 DEPRESSION SCREENING 10/22/2024 HIB VACCINE Aged Out No longer eligi ble based on patient's age to complete this topic HPV VACCINE Aged Out No longer eligi ble based on patient's age to complete this topic MENINGOCOCCAL (Group B) VACCINE SHARED DECISION-MAKING Aged Out No longer eligible based on patient's age to complete this topic MENINGOCOCCAL GROUPS A/C/Y/W VACCINE Aged Out No longer eligible b ased on patient's age to complete this topic Care Teams Loading Machine Operator Helper Relationship Specialty Start Date End Date Unknown, Provider PCP - General 12/21/23
--- OUTSIDE RECORDS SUMMARY | 2025-01-26 14:01 | XMS_ITS | Clinical Summary ---
Author Organization [facility] Address [address] [place] [address] Care Team Providers Care Pump Press Operator Name Role Phone Tracie Guerrero Primary Care Provider [phone] Allergies No known active allergies Medications No known medications Social History Tobacco Use Types Packs/Day Years Used Date Smoking Tobacco: Never Smokeless Tobacco: Never Tobacco Cessation:Counseling Given: Not Answered Alcohol Use Standard Drinks/Week Comments Yes 0 (1 standard drink = 0.6 oz pur e alcohol) socially Comments No Sex and Gender Information Value Date Recorded Sex Assigned at Not on file Legal Sex Female 6:24 PM CDT Gender Identity Not on file Sexual Orientation Not on file Last Filed Vital Signs Vital Sign Reading Time Taken Comments Blood Pressure 141/98 05/09/2024 5:30 PM CDT Pulse 87 05/09/2024 5:30 PM CDT Temperature 36.4 C (97.6 F) 05/09/2024 2:48 PM CDT Respiratory Rate 13 05/09/2024 5:30 PM CDT Oxygen Saturation 100% 05/09/2024 5:30 PM CDT Inhaled Oxygen Concentration - - Weight 116.7 kg (257 lb 4.4 oz) 05/09/2024 2:43 PM CDT Height 165.1 cm (5' 5 ) 05/09/2024 2:43 PM CDT Body Mass Index 42.81 05/09/2024 2:43 PM CDT Plan of Treatment Health Maintenance Due Date Last Done Comments Cervical Cancer Screening Pa p Smear (Age 30 to 64) Every 3 Years 1968 Colorectal Cancer Screening Colonoscopy (10 Years) 1968 Annual Physical 1971 Hepatitis C 1986 DTaP, Tdap and Td Vaccines ( 1 - Tdap) 1987 Hepatitis B Vaccines (1 of 3 - 19+ 3-dose series) 1987 Cervical Cancer Screening uLis Carlos p with HPV Testing (Age 30 to 64) Every 5 Years 1998 Cervical Cancer Screening wi th HPV 1998 Mammogram Screening 2008 Zoster Vaccines (1 of 2) 2018 COVID-19 Vaccine (3 - 2023-2 5 season) 2024 12/21/2020, 11/23/2020 Meningococcal B Vaccine Aged Out No l onger eligible based on patient's age to complete this topic Meningococcal Vaccine Aged Out No shira zehra eligible based on patient's age to complete this topic Pneumococcal Vaccine: Pediatrics (0 to 5 Years) and At-Risk Patients (6 to 64 Years) Aged Out No longer eligible b ased on patient's age to complete this topic RSV Immunizations Under 20 Months Aged Out No longer eligible b ased on patient's age to complete this topic Insurance [facility] Care Teams Pump Press Operator Relationship Specialty Start Date End Date Tracie Guerrero [place] [id number] PCP - General PHYSICIAN [employer]LINDER INSPECTOR 05/09/24
--- OUTSIDE RECORDS SUMMARY | 2025-01-26 14:01 | XMS_ITS | Data Portability ---
Author Organization [facility] Ilana Ingram Address [address] [address] Care Team Providers Care Monitor Tech Name Role Phone ROBERTO AKERS Primary Care Provider Unavailab le Assessment No assessment recorded. Plan of Treatment Reminders Order Date Submit Date Provider Last Modified By Organization Details Last Modified Time Details Appointments ANY 15 2024 11:15A M GUERLINE Pugh Not available Not available Not available Lab cortisol, am, serum 2024 025 SONAL Labrainer, [address], [place], [address], 01/08/2025 13:08:14 insulin, serum 2024 025 KEYSER Labrainer, [address], [place], [address], 01/08/2025 13:08:21 CMP, serum or plasma 2024 025 SONALPURVI Santiago, [address], [place], [address], 01/08/2025 13:08:16 CBC w/ auto diff 2024 025 SONAL Labrainer, [address], [place], [address], 01/08/2025 13:08:24 TSH + free T4, serum 2024 025 SONAL Labrainer, [address], [place], [address], 01/08/2025 13:08:15 ESR (erythroc yte sedimenta tion rate), blood 2024 025 SONAL Santiago, [address], [place], [address], 01/08/2025 13:08:25 C reactive protein, QN, serum or plasma 2024 025 SONAL Santiago, [address], [place], [address], 01/08/2025 13:08:26 HbA1c (hemoglob in A1c), blood 2024 025 SONAL Santiago, [address], [place], [address], 01/08/2025 13:08:17 lh + FSH, serum 2024 025 SONAL Santiago, [address], [place], [address], 01/08/2025 13:08:27 progester one, serum 2024 025 SONAL Santiago, [address], [place], [address], 01/08/2025 13:08:20 estradiol , serum 2024 025 SONAL Santiago, [address], [place], [address], 01/08/2025 13:08:22 dhea-sulf ate, serum 2024 025 SONAL Santiago, [address], [place], [address], 01/08/2025 13:08:18 testoster one, total, serum 2024 025 SONAL Santiago, [address], [place], [address], 01/08/2025 13:08:19 CBC w/ auto diff 2023 024 [email or web address] [facility], [address], [place], [address], 12/23/2024 12:01:04 BMP, serum or plasma 2023 024 [email or web address] [facility], [address], [place], [address], 12/23/2024 12:01:09 cortisol, am, serum 2023 024 [email or web address] [facility], [address], [place], [address], 08/11/2024 10:37:39 insulin, serum 2023 024 [email or web address] [facility], [address], [place], [address], 08/11/2024 10:37:18 CMP, serum or plasma 2023 024 [email or web address] [facility], [address], [place], [address], 08/11/2024 10:37:34 HbA1c (hemoglob in A1c), blood 2023 024 [email or web address] [facility], [address], [place], [address], 08/11/2024 10:37:27 Referral None recorded. Procedures home sleep testing (PROC) 2024 025 [email or web address], [address], [address], [place], [address], 01/05/2025 17:20:03 Surgeries None recorded. Imaging XR, chest, 2 view 2023 024 SONAL Not available 10/03/2024 09:58:54 Medication Orders nabumeton e 500 mg tablet 2024 025 [id number], [address] , [place], [place], [id number], 01/26/2025 12:35:49 Qulipta 60 mg tablet 2023 024 [facility] #[id number], [address], [place], [place], [id number], 09/09/2024 17:34:53 Zepbound 2.5 mg/0.5 mL subcutane ous pen injector 2023 024 [facility], [address], [place], [place], [id number], 09/04/2024 18:03:57 Medrol (Johnie) 4 mg tablets in a dose pack 2023 024 [facility] #[id number], [address], [place], [place], [id number], 09/04/2024 18:03:48 Zepbound 2.5 mg/0.5 mL subcutane ous pen injector 2023 024 [email or web address] [facility]97, [address] , [place], [place], [id number], 09/04/2024 18:03:50 Patient TargetsNo targets recorded. Patient Instructions Encounter Date Encounter Id Patient Instructions Last Modified By Organization Details Last Modified Time 04/03/2024 [id number] A healthy lifestyle: care instructions Not available 04/24/2024 16:33:18 09/30/2024 [id number] A healthy lifestyle: care instructions Not available 10/17/2024 23:33:33 01/05/2025 [id number] A healthy lifestyle: care instructions Not available 01/05/2025 13:15:46 Reason for Referral None Reported. Results Created Date Observation Date Name Description Value Unit Range Abnormal Flag Note LastModifiedBy Organization Detail LastModifiedTime 10/03/2009/30/2024 XR, chest , 2 view No observ ation record ed. [email or web address] [facility] [address], [place], [address], 10/14/2024 11:53:45 Result Notes None recorded. Problems Name Problem SNOMED Code Status Onset Date Resolution Date Notes Provider Name and Address Organization Details Recorded Time Body mass index 40+ - severely obese 965011090 Active 2023 GUERLINE Pugh Attn: Rosaura g,[address] [place], [address], [place] [facility] 4 16:32:28 Long-term drug therapy Active 2023 GUERLINE Pugh Attn: Fernyin g,[address] [place], [address], [place] [facility] 4 16:32:29 Weight gain 8868637 Active 2023 GUERLINE Pugh Attn: Rosaura g,[address] [place], [address], [place] [facility] 4 16:32:30 Obesity 895853372 Active 2023 GUERLINE Pugh Attn: Accountin g,[address] [place], [address], [place] [facility] 4 16:32:44 Insulin resistance 353133719 Active 2023 GUERLINE Pugh Attn: Fernyin g,[address] [place], [address], [place] [facility] 4 16:33:01 Migrainous vertigo 101478453 Active 2023 GUERLINE Pugh Attn: Rosaura g,[address] [place], [address], [place] [facility] 4 10:16:26 Multiple joint pain 95270691 Active 2024 GUERLINE Pugh Attn: Rosaura aguirre,[address] [facility], [place], [address], [facility] - [facility] 5 21:40:54 Sleep apnea 34054468 Active 2024 GUERLINE Pugh Attn: Rosaura aguirre,[address] [facility], [place], [place], [address] [place] [address] 2, [facility] - [facility] 5 21:47:58 Elevated blood-press ure reading without diagnosis of hypertensio n 094672569 Active 2024 GUERLINE Pugh Attn: Rosaura aguirre,[address] [facility], [place], [address], [facility] - SI 5 21:48:14 Positive screening for depression on PHQ-9 (Patient Health Questionnai re 9) 4829606350946 00 Active 2024 GUERLINE Pugh Attn: Rosaura aguirre,[address] [facility], [place], [address], [facility] - SI 5 21:48:15 Menopause present 607603122 Active 2024 GUERLINE Pugh Attn: Rosaura aguirre,[address] [facility], [place], [address], [facility] - SI 21:49:06 Problem Notes None recorded. Procedures Surgical History Date Name Laterality Status Provider Name and Address Organization Details Recorded Time 10/22/19 03 cholecystectomy completed Ad Gallegos [place] - [place] 04/03/2024 14:45:56 Imaging Results Imaging Date Name Status LastModified by Organiz ation Details LastModified Time 09/30/2024 XR, chest, 2 view completed [facility] [address], [place], [address], 10/14/2024 11:53:45 Procedure Notes None recorded. Medical Equipment None Reported. Allergies No known drug allergies Medications Name Sig Start Date Stop Date Status Note LastModified by Organization Details LastModified Time prednison e 10 mg tablet 09/04 completed Not Available Not Available Not Available doxycycli ne hyclate 100 mg capsule 09/04 completed Not Available Not Available Not Available hydrocodo ne 5 mg-acetam inophen 325 mg tablet TAKE 1 TO 2 TABLETS BY MOUTH EVERY 6 HOURS NEEDED FOR PAIN 12/11 completed Not Available Not Available Not Available Nystop 100,000 unit/gram topical powder APPLY TOPICALL Y TO THE AFFECTED AREA TWICE DAILY 04/03 completed Not Available Not Available Not Available meloxicam 15 mg tablet Take 1 tablet every day by oral route for 90 days. 01/05 completed Not Available Not Available Not Available Medrol (Johnie) 4 mg tablets in a dose pack use as directed 2024 active Not Available Not Available Not Avai lable prednison e 20 mg tablet TAKE 2 TABLETS BY MOUTH EVERY DAY FOR 5 DAYS 01/05 completed Not Available Not Available Not Available Zithromax Z-Johnie 250 mg tablet TAKE 2 TABLETS (500 MG) BY ORAL ROUTE ONCE DAILY FOR 1 DAY THEN 1 TABLET (250 MG) BY ORAL ROUTE ONCE DAILY FOR 4 DAYS 2024 active Not Available Not Available Not Avai lable triamtere ne 37.5 mg-hydroc hlorothia zide 25 mg capsule Take by oral route. 2023 active Not Available Not Available Not Avai lable ketorolac 10 mg tablet TAKE 1 TABLET BY MOUTH EVERY 6 HOURS FOR 5 DAYS FOR HEADACHE 09/30 completed Not Available Not Available Not Available diazepam 2 mg tablet TAKE 1 TABLET BY MOUTH ONCE DAILY NEEDED 01/05 completed Not Available Not Available Not Available nortripty line 10 mg capsule 01/05 completed Not Available Not Available Not Available ondansetr on 4 mg disintegr ating tablet PLACE 1 TABLET ON TOP OF THE TONGUE AND ALLOW TO DISSOLVE EVERY 6 HOURS NEEDED 09/04 completed Not Available Not Available Not Available fluticaso ne propionat e 50 mcg/actua tion nasal spray,levi pension SPRAY 2 SPRAYS IN EACH NOSTRIL TWICE DAILY 09/04 completed prn Not Available Not Available Not Available amoxicill in 875 mg-potass ium clavulana te 125 mg tablet TAKE 1 TABLET BY MOUTH TWICE DAILY WITH THE MORNING AND EVENING MEAL FOR 10 DAYS 04/03 completed Not Available Not Available Not Available nabumeton e 500 mg tablet Take by oral route for 30 days. 01/26 completed pt states that it hasn't worked Not Available Not Available Not Available verapamil ER 120 mg 24 hr capsule,e xtended release TAKE 1 CAPSULE BY MOUTH DAILY 04/03 completed Not Available Not Available Not Available Lo Loestrin Fe 1 mg-10 mcg (24)/10 mcg (2) tablet Take 1 tablet every day by oral route for 78 days. 01/05 completed pt stopped in oct Not Available Not Available Not Available Virtussin AC 10 mg-100 mg/5 mL oral liquid Take 10 mL every 4-6 hours by oral route as needed. 2024 active Not Available Not Available Not Avai lable Ubrelvy 100 mg tablet TAKE 1 TABLET BY MOUTH AT ONSET OF HEADACHE . REPEAT IN 2 HOURS NEEDED. MAX 200 MG / 24 HOURS 05/16 completed Not Available Not Available Not Available Qulipta 60 mg tablet Take 1 tablet every day by oral route. 09/09 completed Not Available Not Available Not Available Mounjaro 5 mg/0.5 mL subcutane ous pen injector ADMINIST ER 0.5 ML UNDER THE SKIN EVERY WEEK DIRECTED 04/03 completed Not Available Not Available Not Available Zepbound 2.5 mg/0.5 mL subcutane ous pen injector ADMINIST ER 2.5 MG UNDER THE SKIN EVERY WEEK active Not Available Not Available No t Available Vitals Date Recorded Body height Body mass index (BMI) Body weight Respiratory rate Oxygen saturation Oxygen saturation in Arterial blood by Pulse oximetry Heart rate Systolic blood pressure Diastolic blood pressure Provider Name and Address Organization Details Last Updated DateTime 4 165.1 cm 41.3 kg/m2 325954. 99 g 20 /min 100 % 100 % 73 /min 128 mm[Hg] 88 mm[Hg] Ad Gallegos [place] - [facility] 4 14:57:17 Date Recorded Body height Body mass index (BMI) Body weight Oxygen saturation Oxygen saturation in Arterial blood by Pulse oximetry Heart rate Body temperature Respiratory rate Systolic blood pressure Diastolic blood pressure Provider Name and Address Organization Details Last Updated DateTime 4 165.1 cm 41.6 kg/m2 736532. 09 g 98 % 98 % 74 /min 98 [degF] 18 /min 138 mm[Hg] 96 mm[Hg] Randy Mccartney MA [facility] 4 15:01:26 Date Recorded Systolic blood pressure Diastolic blood pressure Provider Name and Address Organization Details Last Updated DateTime 05/16/2024 130 mm[Hg] 90 mm[Hg] GUERLINE Pugh Attn: [address], [place], [address], [facility] 05/16/2024 15:23:05 Date Recorded Body height Body mass index (BMI) Body weight Oxygen saturation Oxygen saturation in Arterial blood by Pulse oximetry Heart rate Systolic blood pressure Diastolic blood pressure Provider Name and Address Organization Details Last Updated DateTime 4 165.1 cm 42.6 kg/m2 606479. 65 g 96 % 96 % 84 /min 130 mm[Hg] 82 mm[Hg] Ad Gallegos MA [facility] 4 11:23:23 Date Recorded Respiratory rate Systolic blood pressure Diastolic blood pressure Systolic blood pressure Diastolic blood pressure Provider Name and Address Organization Details Last Updated DateTime 4 18 /min 140 mm[Hg] 90 mm[Hg] 140 mm[Hg] 90 mm[Hg] GUERLINE Pugh Attn: Accountin g,[address] [place], [address], [facility] 4 11:40:16 Date Recorded Body height Body mass index (BMI) Body weight Respiratory rate Oxygen saturation Oxygen saturation in Arterial blood by Pulse oximetry Heart rate Systolic blood pressure Diastolic blood pressure Provider Name and Address Organization Details Last Updated DateTime 5 165.1 cm 42.8 kg/m2 437097. 24 g 18 /min 97 % 97 % 92 /min 132 mm[Hg] 80 mm[Hg] Ad Gallegos MA [facility] 5 12:56:25 Date Recorded Systolic blood pressure Diastolic blood pressure Provider Name and Address Organization Details Last Updated DateTime 01/05/2025 140 mm[Hg] 90 mm[Hg] GUERLINE Pugh Attn: Accounting,[address] [place], [address], [facility] 01/05/2025 13:16:49 Date Recorded Body height Body mass index (BMI) Body weight Oxygen saturation Oxygen saturation in Arterial blood by Pulse oximetry Heart rate Respiratory rate Systolic blood pressure Diastolic blood pressure Provider Name and Address Organization Details Last Updated DateTime 165.1 cm 41.4 kg/m2 233948. 5 g 98 % 98 % 85 /min 18 /min 138 mm[Hg] 80 mm[Hg] Ad Gallegos MA [facility] 12:38:44 Date Recorded Systolic blood pressure Diastolic blood pressure Provider Name and Address Organization Details Last Updated DateTime 01/26/2025 124 mm[Hg] 86 mm[Hg] GUERLINE Pugh Attn: Accounting,[address] [place], [address], [facility] 01/26/2025 12:50:50 Social History Question Answer Notes LastModified by Organizat ion Details LastModified Time Tobacco Smoking Status Never Smoker Ad Gallegos MA [facility] 04/03/2024 14:48:44 Do You Have An Advance Directive? No Information not available 04/02/2024 What Is Your Level Of Alcohol Consumption? Occasional Information not available 04/03/2024 Are You Blind Or Do You Have Difficulty Seeing? No Glasses/ Computer Information not available 04/02/2024 What Is Your Level Of Caffeine Consumption? Occasional Information not available 09/30/2024 In The 14 Days Before Symptom Onset, Have You Had Close Contact With A Laboratory-confi rmed COVID-19 While That Case Was Ill? No Information not available 04/02/2024 In The 14 Days Before Symptom Onset, Have You Had Close Contact With A Person Who Is Under Investigation For COVID-19 While That Person Was Ill? No Information not available 04/02/2024 Have You Been To An Area Known To Be High Risk For COVID-19? No Information not available 04/02/2024 Are You Currently Employed? Yes Information not available 04/02/2024 Are You Deaf Or Do You Have Serious Difficulty Hearing? No Information not available 04/02/2024 What Type Of Diet Are You Following? 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 No Information not available 04/02/2024 Which Of Your Hands Is Dominant? Right Information not available 04/02/2024 Do You Have A Medical Power Of Client Solutions Specialist? No Information not available 04/02/2024 What Was The Date Of Your Most Recent Tobacco Screening? 01/26/2025 Information not available 01/26/2025 Do You Use Your Seat Belt Or Car Seat Routinely? Yes Information not available 04/02/2024 Do You Have Smoke And Carbon Monoxide Detectors In Your Home? Yes Information not available 04/02/2024 Do You Use Any Illicit Or Recreational Drugs? No Information not available 04/03/2024 Do You Use Sunscreen Routinely? Yes Information not available 09/30/2024 Has Tobacco Cessation Counseling Been Provided? Yes Information not available 04/02/2024 On What Date Was Tobacco Cessation Counseling Provided? 01/26/2025 Information not available 01/26/2025 Are You Currently In School? No Information not available 04/02/2024 Do You Or Have You Ever Used Any Other Forms Of Tobacco Or Nicotine? No Information not available 04/03/2024 Sex: Female Functional Status Question Answer Note LastModified by Organization D etails LastModified Time Are you able to care for yourself? Yes Information n ot available 04/02/2024 Mental Status None recorded. Family History Relationship Description Onset Age of this Age Resolved Age Notes LastModified by Organization Details LastModified Time Father Alcohol abuse tcarterma Not available 2023 14:47:19 Father Cerebrovascu lar accident tcarterma Not available 14:47:24 Father Coronary arterioscler osis tcarterma Not available 2023 14:47:35 Father Diabetes mellitus tcarterma Not available 2023 14:47:47 Father Disorder of thyroid gland tcarterma Not available 2023 14:47:53 Father Heart disease tcarterma Not available 2023 14:47:58 Father Hypertensive disorder tcarterma Not available 2023 14:48:13 Father Hypercholest erolemia tcarterma Not available 2023 14:48:21 Father Myocardial infarction tcarterma Not available 04/03 14:48:26 Mother Diabetes mellitus tcarterma Not available 2023 14:47:47 Mother Hypertensive disorder tcarterma Not available 2023 14:48:13 Mother Hypercholest erolemia tcarterma Not available 2023 14:48:21 Medical History Condition Response Coronary Artery Disease N Other N High Blood Pressure N Atrial Fibrillation N Kidney or Bladder Problems N Thyroid Problems N GI Problems N Depression N COPD N Blood Clots N Skin Problems N Anemia N Heart Attack ([place]) N Anxiety Disorder N Diabetes N Muscle, Joint, or Bone Problems N Seizures/Epilepsy N Acid Reflux (GERD) N Cancer N Stroke N Asthma N Allergies N High Cholesterol N Hepatitis N Liver Disease N Headaches N Heart Failure N Osteoporosis N Gynecological History Statement/Question Response Menses Monthly N Current Control Method BCPs Obstetrics History GPAL:G 0 P 0 0 0 0 Immunizations Vaccine Type Date Status Note Provider Nam e and Address Organization Details Recorded Time COVID-19, mRNA, LNP-S, PF, 100 mcg/0.5mL dose or 50 mcg/0.25mL dose 11/23/2020 completed DUNIA Zhou, [place] - [facility] 09/30/2024 11:15:10 COVID-19, mRNA, LNP-S, PF, 100 mcg/0.5mL dose or 50 mcg/0.25mL dose 12/21/2020 completed DUNIA Zhou, [place] [facility] 09/30/2024 11:15:10 Influenza, split virus, quadrivalent, PF 08/12/2019 completed Ad Gallegos [facility], [place] - [facility] 09/30/2024 11:15:10 Past Encounters Encounter ID Performer Location Encounter Start Date Encounter Closed Date Diagnosis/Indication Diagnosis SNOMED-CT Code Diagnosis ICD10 Code Diagnosis Note [id number] GUERLINE Pugh [facility] [address] [place] [address] 04/03/2024 14:27:14 04/03/2024 15:35:45 Insulin resistance 673322968 E88.819 screening insulin lab is due Body mass index 40+ - severely obese 152592207 Z68.41 BMI 41.3. start zepbound injectable therapy. no personal or family hx of Medullary thyroid cancer or MEN conditions . Long-term drug therapy 354335420 Z79.899 routine cmp due , other labs are already UTD Diabetes m ellitus screening 372189388 Z13.1 a1c screening due Weight gain 9926133 R63. 5 screening cortisol level is requested. Obesity 418292952 E66.8 discussed healthy diet, exercise, controllin g carbohydra reed and added sugars in the diet [id number] GUERLINE Pugh [facility] [address] [place] [address] 05/16/2024 14:49:13 05/16/2024 16:09:39 Body mass index 40+ - severely obese 672764923 Z68.41 BMI 41.3. start zepbound injectable therapy. no personal or family hx of Medullary thyroid cancer or MEN conditions . Bronchitis 23780144 J40 Check repeat chest x-ray and start a Medrol Dosepak to further help in peribronch ial thickening noted on x-ray Hypokalemia 90468053 E87 .6 Repeat basic metabolic panel to evaluate for potassium Leukocytosis 005526733 D 72.829 Repeat CBC with diff Migrainous vertigo 59374 4007 H81.8X9 She has tried and failed diuretic, ketorolac NSAID, Nurtec. Trial of Q-tip to 60 mg daily in hopes that this will also help her vestibular migraine component that is extremely present. [id number] GUERLINE Pugh [facility] [address] [place] [address] 09/30/2024 11:01:04 09/30/2024 11:42:58 Elevated blood-pressure reading without diagnosis of hypertension 241892902 R03.0 Patient's blood pressure is 140/90 on exam today. Patient does have her triamteren e hydrochlor othiazide that she is able to restart. Also we discussed weight loss will also help to manage her borderline blood pressure. She had great success on Mounjaro therapy when a co-pay card was available but has not been able to afford the high cost of that or Zepbound therapy. Body mass index 40+ - severely obese 610428396 Z68.41 BMI is 42.6 Obesity 195544987 E66.9 discussed healthy diet, exercise, controllin g carbohydra reed and added sugars in the diet [id number] GUERLINE Pugh [facility] [address] [place] [address] 01/05/2025 12:16:45 01/05/2025 13:55:09 Positive screening for depression on PHQ-9 (Patient Health Questionnaire 9) 3295678751 99412 Z13.31 Patient scored an 8 on screening today. She is not interested in any type of medication treatment for mood Insulin resistance 47710 5000 E88.819 screening insulin lab or fasting Weight gain 6034306 R63. 5 screening cortisol level is requested. Body mass index 40+ - severely obese 153538974 Z68.41 BMI 42.8; screening thyroid testing ordered Obesity 347616050 E66.9 discussed healthy diet, exercise, controllin g carbohydra reed and added sugars in the diet Long-term drug therapy 117969471 Z79.899 routine cmp due Diabetes m ellitus screening 911439736 Z13.1 a1c screening due Menopause present 610680 006 N95.1 Screening hormone panel to verify menopause Multiple joint pain 3567 8005 M25.50 Refer for sed rate C-reactive protein trial of nabumetone 500 mg twice daily with meals Sleep apnea 32184989 G47 .30 Refer for home sleep study testing to evaluate for underlying sleep apnea Elevated blood-pressure reading without diagnosis of hypertension 606796169 R03.0 Patient's blood pressure is 140/90 on exam today. Patient does have her triamteren e hydrochlor othiazide that she is able to restart. Also we discussed weight loss will also help to manage her borderline blood pressure. She had great success on Mounjaro therapy when a co-pay card was available but has not been able to afford the high cost of that or Zepbound therapy. [id number] GUERLINE Pugh [facility] [address] [address] [place] [address] 01/26/2025 12:01:18 01/26/2025 13:01:06 Body mass index 40+ - severely obese 901767972 Z68.41 Morbid obesity 495379798 E66.01 Acute bronchitis 6339382 2 J20.9 Wheezing 82857478 R06.2 Cough 78873696 R05.9 Health Concerns Section Related Observation LastModified by Organization Detai ls LastModified Time None Recorded Concern Status LastModified by Organization Details LastModified Time None Recorded Advance Directives Directive N: Payers Encounter Date Sequence Insurance Name Policy Number Policy Glez Covered Member ID Glez Member ID Guarantor Name 04/03/2024 1 [id number] José Luis Pinedor [id number] [employer] [address] 05/16/2024 1 [place] [id number] José Luis Pinedor [id number] [employer] [address] 09/30/2024 1 [place] [id number] José Luis Pinedor [id number] [employer] [address] 01/05/2025 1 [place] [id number] José Luis Pinedor [id number] [employer] [place] Notes Date Note Type Note Provider Name and Address Organization Details Recorded Time 4 text/html Patient has hx of insulin resistance and weight gain. She was on mounjaro for almost a year when it was first launched and had absolutely terrific results, over 50 pounds of weight loss, joint pain improved, energy better. she was so pleased and happy . Then the coupon card for mounjaro stopped, and she had to come off due to cost. she has gained much of her weight back. she would like to try zepbound if an option to afford. GUERLINE Pugh Attn: Accounting,[address] [facility], [place], [address], [facility] 04/24/2024 16:33:48 4 text/html CoughReported bypatient.Notes:Patient had a lingering cough for several weeks and it was progressing. She ended up going to the emergency room and was diagnosed with a bronchitis based off of some peribronchial thickening on x-ray. She did not have any wheezing present. Patient is also having vestibular migraines and is seeing specialist. She would like to see if she can try getting on something new for migraines to see if it will help with her type of vestibular migraine. Patient had some leukocytosis on labs that will need followed up on as well as hypokalemia in the ER. Obesity-patient would like to see if she can get bound ordered to see what her insurance will say this year GUERLINE Pugh Attn: Accounting,[address] [facility], [place], [address], [facility] 05/22/2024 10:16:58 4 text/html Patient is here for follow-up on her blood pressure. She was having some mild elevations on home blood pressure check. There is patient case discussion about it. She was notified that she could take her triamterene hydrochlorothiazide diuretic to help with lowering the pressure. She has not started it because once there was some decrease stress her blood pressure started improving. GUERLINE Pugh Attn: Accounting,[address] [facility], [place], [address], [facility] 10/17/2024 23:33:54 5 text/html Patient has hx of insulin resistance and weight gain. A few years ago, she was on mounjaro for almost a year when it was first launched and had absolutely terrific results, over 50 pounds of weight loss, joint pain improved, energy better. she was so pleased and happy . Then the coupon card for mounjaro stopped, and she had to come off due to cost. she has gained much of her weight back. she would like to try zepbound if an option to afford. Her joint pain is horrible and she has gained back her weight. She has a history of insulin resistance also witnessed apnea of her sleep, her blood pressure is elevating as well. She is due for labs . Also having menopausal symptoms GUERLINE Pugh Attn: Accounting,[address] [facility], [place], [address], [place] [facility] 01/20/2025 21:49:52 OBGyn Episode Ob Episode Information Episode Created Date Number of Fetuses Patient Bloodtype Patient rh Status Prepregnancy Weight lbs Domestic Partner Domestic Partner Phone Father Name [employer] Status 09/29/20 24 1 DELETED Fetus Data First Name Last Name Admitted to NICU Weight (g) Sex Living Outcome Pediatric Complications Fetus ID Race Codes Race Delivery Type [id number] Nitin Calculation Initial Nitin Date Initial Exam Date Initial Exam Provider Initial Ultrasound Date Last Menstrual Period Date Ultra Sound Weeks Gestation 09/29/2024 0 Eighteen To Twenty Week Nitin Update Ultra Sound Date Fundal Height At Umbil Quickening Date Ultra Sound Latest Weeks Gestation Final Nitin Confirmed By Final Nitin Confirmed Date Final Nitin Date Ultra Sound Latest Days Gestation 0 0 Menstrual History Last Menstrual Date Menses Monthly On Bcp Conception Prior Menses Frequency Hcg Plus Date Menarche Onset Age Delivery Information Delivery Date Delivery Type Labor Anesthesia Weeks Gestation Incision Type Labor Labor Length Hrs Delivered By Post Complications Tubal Sterilization Discharge Date Comments Discharge Information Feeding Method Contraceptive Method Maternal HG B and HCT Levels
== END 2025-01-26 12:19 | disposition home or self-care (01) ==
PROVIDERS: PCP Physician Assistant; Visit Provider Physician Assistant
DX: R06.2 Wheezing (principal); J18.9 Pneumonia, unspecified organism
CPT/HCPCS: 71046